=== PATIENT | female | born 1965 | race Two or more races ===

== ENCOUNTER 2021-07-03 11:05 | Emergency (ER) | payer OTHER ==
[~2021-07-03] VITALS: Ht 160 cm; Wt 70.3 kg
[2021-07-03] MEDS ORDERED: NAPROXEN500 MG PO (15:00)
== END 2021-07-03 15:18 | disposition home or self-care (01) ==
LOC: ER 11:05
DX: S29.8XXA Other specified injuries of thorax, initial encounter (principal); W19.XXXA Unspecified fall, initial encounter; Y93.89 Activity, other specified; Y92.89 Other specified places as the place of occurrence of the external cause; Z88.1 Allergy status to other antibiotic agents